=== PATIENT | male | born 1990 | race Hispanic/Latino ===

== ENCOUNTER 2018-07-28 05:48 | Emergency (ER) | payer OTHER ==
[~2018-07-28] VITALS: Ht 175.3 cm; Wt 86.2 kg
[2018-07-28] MEDS ORDERED: AMOXICILLIN/CLAVULANATE K 875 MG TAB PO STA (05:51)
[2018-07-28] MEDS ORDERED: IBUPROFEN 600 MG TAB PO STA (05:53)
--- NOTE | 2018-07-28 07:17 | Diagnostic Imaging Report ---
RIGHT HAND X-RAY - 3 VIEWS HISTORY: \S\eval for foreign body \[id number] \S\[id number] \S\Y COMPARISON: None available. FINDINGS: Bones: No acute displaced fracture. Osseous alignment is within normal limits. Ulnar minor variance. Joints: The joint spaces are well-maintained. Soft tissues: The soft tissues appear unremarkable. IMPRESSION: No acute radiographic abnormality. No radiopaque foreign bodies overlying the right hand. Signed by: Dr. Radha Harry M.D. on 07/28/2018 7:13 AM
[2018-07-28 07:46] VITALS: BP 130/63
== END 2018-07-28 07:56 | disposition home or self-care (01) ==
LOC: ER 05:48
DX: S60.571A Other superficial bite of hand of right hand, initial encounter (principal); W54.0XXA Bitten by dog, initial encounter; Y92.008 Other place in unspecified non-institutional (private) residence as the place of occurrence of the external cause
CPT/HCPCS: 99283